=== PATIENT | female | born 1975 | race Caucasian/White ===

== ENCOUNTER 2017-08-31 06:39 | Outpatient (CLI) | payer OTHER ==
[~2017-08-31 06:39] MED LIST: CYCL-1 PO
[2017-08-31 07:45] LABS: BASOPHILS % (AUTO) 0.7 % (0-1); EOSINOPHILS # (AUTO) 0.1 X10'3 (0-0.9); EOSINOPHILS % (AUTO) 1.6 % (0-6); HEMATOCRIT 42.6 % (35.0-45.0); HEMOGLOBIN 14.4 g/dl (12.0-16.0); LYMPHOCYTES # (AUTO) 2.5 X10'3 (1.1-4.8); LYMPHOCYTES % (AUTO) 43.6 % (21-51); MEAN CORPUSCULAR HEMOGLOBIN 27.8 PG (27.0-31.0); MEAN CORPUSCULAR HGB CONC 33.8 % (33.0-36.5); MEAN CORPUSCULAR VOLUME 82.4 FL (78-98); MEAN PLATELET VOLUME 9.8 FL (7.4-10.4); MONOCYTES # (AUTO) 0.4 X10'3 (0-0.9); NEUTROPHILS # (AUTO) 2.7 X10'3 (1.8-7.7); NEUTROPHILS % (AUTO) 47.1 % (42-75); PLATELET COUNT 255 X10'3 (140-440); RED BLOOD COUNT 5.17 X10'6 (4.20-5.60); RED CELL DISTRIBUTION WIDTH 14.9 % (11.5-14.5); WHITE BLOOD COUNT 5.7 X10'3 (4.5-11.0)
[2017-08-31 07:46] LABS: % IRON SATURATION 24 % (11-46); IRON 70 UG/DL (49-151); TOTAL IRON BINDING CAPACITY 292 UG/DL (259-388)
[2017-08-31 08:00] LABS: ALANINE AMINOTRANSFERASE 28 U/L (12-78); ALBUMIN 4.1 G/DL (3.4-5.0); ALBUMIN/GLOBULIN RATIO 1.1 (1.1-1.5); ALKALINE PHOSPHATASE 89 IU/L (46-116); ANION GAP 13 (8-16); ASPARTATE AMINO TRANSFERASE 14 U/L (10-37); BILIRUBIN,TOTAL 0.8 MG/DL (0.1-1.0); BLOOD UREA NITROGEN 19 MG/DL (7-18); BUN/CREATININE RATIO 16.7 (6.6-38.0); CALCIUM 9.1 MG/DL (8.5-10.1); CHLORIDE 103 MMOL/L (99-107); CHOLESTEROL 243 MG/DL (0-200); CREATININE 1.14 MG/DL (0.40-0.90); GLUCOSE 96 MG/DL (70-104); HDL CHOLESTEROL 61 MG/DL (35-60); LDL CHOLESTEROL 164 MG/DL (50-100); POTASSIUM 3.6 MMOL/L (3.5-5.1); SODIUM 138 MMOL/L (135-145); TOTAL CARBON DIOXIDE 21.8 MMOL/L (24-32); TOTAL PROTEIN 7.8 G/DL (6.4-8.2); TRIGLYCERIDES 104 MG/DL (20-135); eGFR 53 ML/MIN
[2017-08-31 08:03] LABS: HEMOGLOBIN A1C 5.4 % (4.5-6.2)
== END 2017-08-31 23:59 | disposition home or self-care (01) ==
LOC: LAB 06:39
PROVIDERS: ATTEND Family Medicine
DX: E66.9 Obesity, unspecified (principal); I10 Essential (primary) hypertension; B02.39 Other herpes zoster eye disease; Z98.84 Bariatric surgery status
CPT/HCPCS: 36415; 80053; 80061; 82607; 83036; 83540; 83550; 85025

== ENCOUNTER 2017-11-03 15:29 | Emergency (ER) | payer OTHER ==
[~2017-11-03] VITALS: Ht 180.3 cm; Wt 82.0 kg
[2017-11-03] MEDS ORDERED: normal saline 1000ML IV soln IVB ONE (15:40)
[2017-11-03] MEDS ORDERED: ondansetron/PF 4mg/2ml inj IV ONE ×3 (15:40→19:05)
[2017-11-03] MEDS: morphine 4 MG/ML inj SYRINge IV PRN ×2 (15:43→16:06)
[2017-11-03 15:53] LABS: BASOPHILS % (AUTO) 0.3 % (0-1); EOSINOPHILS # (AUTO) 0.1 X10'3 (0-0.9); EOSINOPHILS % (AUTO) 1.4 % (0-6); HEMATOCRIT 39.2 % (35.0-45.0); HEMOGLOBIN 13.4 g/dl (12.0-16.0); LYMPHOCYTES # (AUTO) 1.6 X10'3 (1.1-4.8); LYMPHOCYTES % (AUTO) 22.8 % (21-51); MEAN CORPUSCULAR HEMOGLOBIN 28.3 PG (27.0-31.0); MEAN CORPUSCULAR VOLUME 83.1 FL (78-98); MEAN PLATELET VOLUME 9.6 FL (7.4-10.4); MONOCYTES # (AUTO) 0.6 X10'3 (0-0.9); MONOCYTES % (AUTO) 8.9 % (2-12); NEUTROPHILS # (AUTO) 4.7 X10'3 (1.8-7.7); NEUTROPHILS % (AUTO) 66.6 % (42-75); PLATELET COUNT 238 X10'3 (140-440); RED BLOOD COUNT 4.72 X10'6 (4.20-5.60)
[2017-11-03 16:07] LABS: ALANINE AMINOTRANSFERASE 20 U/L (12-78); ALBUMIN 3.8 G/DL (3.4-5.0); ALKALINE PHOSPHATASE 85 IU/L (46-116); ANION GAP 8 (8-16); ASPARTATE AMINO TRANSFERASE 13 U/L (10-37); BILIRUBIN,TOTAL 0.5 MG/DL (0.1-1.0); BLOOD UREA NITROGEN 19 MG/DL (7-18); BUN/CREATININE RATIO 22.4 (6.6-38.0); CALCIUM 9.3 MG/DL (8.5-10.1); CHLORIDE 104 MMOL/L (99-107); CREATININE 0.85 MG/DL (0.40-0.90); GLUCOSE 99 MG/DL (70-104); LIPASE 160 U/L (73-393); POTASSIUM 4.2 MMOL/L (3.5-5.1); SODIUM 139 MMOL/L (135-145); TOTAL CARBON DIOXIDE 26.8 MMOL/L (24-32); TOTAL PROTEIN 7.6 G/DL (6.4-8.2); eGFR 74 ML/MIN
[2017-11-03] MEDS ORDERED: iohexol 300mg/ml 100ml inj. ONE (16:30)
[2017-11-03] MEDS ORDERED: HYDROmorphone 1 mg/ml syringe IV ONE (16:45)
[2017-11-03] MEDS ORDERED: normal saline 1000ml 1,000 ML IV ONE (16:50)
[2017-11-03 17:05] VITALS: BP 123/95
[2017-11-03] MEDS ORDERED: metroNIDAZOLE-Flagyl 500mg/NS 100 ML IV STA (17:12)
[2017-11-03] MEDS ORDERED: ciprofloxacin lact 400MG/200ML 200 ML IV ONE (17:15)
[2017-11-03] MEDS ORDERED: PHE12.5T PO (17:17)
[2017-11-03] MEDS ORDERED: ACET-3067 PO (17:17)
[2017-11-03] MEDS ORDERED: DICY10CA88 PO (17:17)
[2017-11-03] MEDS ORDERED: CIPR-230 PO (17:17)
[2017-11-03] MEDS ORDERED: METR500T4 PO (17:17)
[2017-11-03] MEDS ORDERED: proMETHazine 25mg tablet PO ONE (17:35)
[2017-11-03] MEDS ORDERED: dicyclomine 10 MG capsule PO ONE (17:55)
[2017-11-03 17:56] LABS: CLARITY,URINE CLEAR (Clear); COLOR,URINE STRAW (Yellow); GLUCOSE, URINE NEGATIVE (Neg); KETONES,URINE 15 mg/dl (Neg); LEUKOCYTE ESTERASE ,URINE NEGATIVE (Neg); NITRITES, URINE NEGATIVE (Neg); OCCULT BLOOD,URINE NEGATIVE (Neg); PROTEIN,URINE NEGATIVE (Neg); UROBILINOGEN,URINE 0.2 E.U/dL (0.2-1.0)
[2017-11-03 17:57] LABS: UA COLLECTION TYPE CLN CATCH MIDSTREAM
[2017-11-03] MEDS ORDERED: fentaNYL/PF 50MCG/1 ML 2ML syringe IV ONE (18:10)
[2017-11-03] MEDS ORDERED: ketorolac trometh. 30mg/ml inj. IV ONE (18:10)
[2017-11-03] MEDS ORDERED: ondansetron inj. 24 MG in normal saline 250ml IV soln 228 ML IV ONE (19:00)
== END 2017-11-03 20:14 | disposition home or self-care (01) ==
LOC: ER 15:29
DX: K52.9 Noninfective gastroenteritis and colitis, unspecified (principal); Z90.49 Acquired absence of other specified parts of digestive tract; Z90.710 Acquired absence of both cervix and uterus; Z98.890 Other specified postprocedural states; Z88.2 Allergy status to sulfonamides; Z79.899 Other long term (current) drug therapy
CPT/HCPCS: 36415; 74177; 80053; 81003; 83690; 85025; 96365; 96366; 96367; 96375; 96376; 99285; J0744; J1170; J1885; J2270; J2405; J3010; J3490; J7030; Q0169; Q9967

== ENCOUNTER 2018-01-20 15:22 | Emergency (ER) | payer OTHER ==
[~2018-01-20] VITALS: Ht 180.3 cm; Wt 78.2 kg
[~2018-01-20 15:22] MED LIST changes: +DICY10CA88 PO; +PHE12.5T PO
[2018-01-20] MEDS ORDERED: ketorolac trometh inj. 60 MG/2 ML VIAL IM ONE (15:45)
[2018-01-20] MEDS ORDERED: ketorolac tromethamine 15mg/ml inj. IM ONE (15:45)
[2018-01-20] MEDS ORDERED: BACL20TA PO (16:16)
[2018-01-20] MEDS ORDERED: HYDR-4353 PO (16:24)
[2018-01-20 16:58] VITALS: BP 129/83
== END 2018-01-20 17:00 | disposition home or self-care (01) ==
LOC: ER 15:23
DX: M54.6 Pain in thoracic spine (principal); M54.2 Cervicalgia; M41.9 Scoliosis, unspecified; Z90.49 Acquired absence of other specified parts of digestive tract; Z90.710 Acquired absence of both cervix and uterus; Z98.890 Other specified postprocedural states; Z88.2 Allergy status to sulfonamides; Z79.899 Other long term (current) drug therapy; X50.0XXA Overexertion from strenuous movement or load, initial encounter; Y93.F9 Activity, other caregiving; Y92.89 Other specified places as the place of occurrence of the external cause; Y99.8 Other external cause status
CPT/HCPCS: 72052; 72070; 96372; 99283; J1885

== ENCOUNTER 2020-05-27 05:45 | Day surgery (SDC) | payer BC ==
[2020-05-27] VITALS (12 sets, daily range): BP systolic 110–147; BP diastolic 63–83
[~2020-05-27] VITALS: Ht 180.3 cm; Wt 73.8 kg
[~2020-05-27 05:45] MED LIST changes: +BENA10TA74 PO; -CYCL-1 PO; -DICY10CA88 PO; +DIFL5DRO OP; +DOCUMENT DATE & TIME OF BETA-BLOCKER PO ONE; +METO-384 PO; -PHE12.5T PO; +PREG100C55 PO; +VALA100031 PO; +albuterol 2.5 MG/3 ML nebule NEB ONE; +cefazolin/dext.iso 2gm/100ml 100 ML IV ONE; +famotidine 20mg tablet PO ONE; +ringers solution, lacted 1,000 ML IV SCH; +scopolamine 1.5mg patch.TD72 TD ONE
[2020-05-27] MEDS ORDERED: LIDOcaine 1% 30ml preserv. free vial ONE (06:39)
[2020-05-27] MEDS ORDERED: BUPIVAcaine/PF 2.5 mg/ml (0.25%) 30ml vial ONE (06:40)
[2020-05-27] MEDS ORDERED: scopolamine 1.5mg patch.TD72 TD ONE (07:00)
[2020-05-27 07:02] LABS: BASOPHILS % (AUTO) 0.6 % (0-1); EOSINOPHILS # (AUTO) 0.1 X10'3 (0-0.9); EOSINOPHILS % (AUTO) 2.6 % (0-6); HEMATOCRIT 38.7 % (35.0-45.0); MEAN CORPUSCULAR HEMOGLOBIN 28.8 PG (27.0-31.0); MEAN CORPUSCULAR HGB CONC 33.7 g/dL (33.0-36.5); MEAN CORPUSCULAR VOLUME 85.5 FL (78-98); MEAN PLATELET VOLUME 8.4 FL (7.4-10.4); MONOCYTES # (AUTO) 0.4 X10'3 (0-0.9); MONOCYTES % (AUTO) 8.1 % (2-12); NEUTROPHILS # (AUTO) 2.3 X10'3 (1.8-7.7); NEUTROPHILS % (AUTO) 47.7 % (42-75); PLATELET COUNT 259 X10'3 (140-440); RED BLOOD COUNT 4.53 X10'6 (4.20-5.60); RED CELL DISTRIBUTION WIDTH 12.8 % (11.5-14.5); WHITE BLOOD COUNT 4.9 X10'3 (4.5-11.0)
[2020-05-27] MEDS ORDERED: ondansetron/PF 4mg/2ml inj IV PRN (07:15)
[2020-05-27] MEDS ORDERED: morphine 2 MG/ML inj. syringe IV PRN (07:15)
[2020-05-27] MEDS ORDERED: labetalol 20mg/4ml (5mg/ml) syringe IV PRN (07:15)
[2020-05-27] MEDS ORDERED: fentaNYL/PF 50MCG/1 ML 2ML syringe IV PRN (07:15)
[2020-05-27] MEDS ORDERED: hydrALAZINE 20mg/ml inj. IV PRN (07:15)
[2020-05-27] MEDS ORDERED: ringers solution, lacted 1,000 ML IV SCH (07:15)
[2020-05-27 07:18] LABS: ALANINE AMINOTRANSFERASE 25 U/L (12-78); ALBUMIN 3.7 G/DL (3.4-5.0); ALKALINE PHOSPHATASE 82 IU/L (46-116); ANION GAP 9 (8-16); BILIRUBIN,TOTAL 0.7 MG/DL (0.1-1.0); BLOOD UREA NITROGEN 19 MG/DL (7-18); BUN/CREATININE RATIO 26.8 (6.6-38.0); CALCIUM 9.3 MG/DL (8.5-10.1); CHLORIDE 108 MMOL/L (99-107); CREATININE 0.71 MG/DL (0.40-0.90); GLUCOSE 95 MG/DL (70-104); SODIUM 143 MMOL/L (135-145); TOTAL CARBON DIOXIDE 25.6 MMOL/L (24-32); TOTAL PROTEIN 7.3 G/DL (6.4-8.2); eGFR 89 ML/MIN
[2020-05-27] MEDS ORDERED: midazolam 1 mg/ML 2ml injection ONE ×2 (07:18)
[2020-05-27] MEDS ORDERED: fentaNYL/PF 50MCG/1 ML 2ML syringe ONE (07:18)
[2020-05-27] MEDS ORDERED: dexamethasone sod phosphate 4mg/ml inj. ONE (07:19)
[2020-05-27] MEDS ORDERED: propofol inj 20 ML IV ONE (07:19)
[2020-05-27] MEDS ORDERED: neostigmine methylsulfate 1 MG/ML 10ml vial ONE (07:19)
[2020-05-27] MEDS ORDERED: LIDOcaine 2% (20mg/ml) 5ml vial ONE (07:19)
[2020-05-27] MEDS ORDERED: ondansetron/PF 4mg/2ml inj ONE (07:20)
[2020-05-27] MEDS ORDERED: glycopyrrolate 0.2mg/ml inj ONE (07:20)
[2020-05-27] MEDS ORDERED: rocuronium 10mg/ml inj IV ONE ×2 (07:20→09:07)
[2020-05-27 07:22] LABS: ASPARTATE AMINO TRANSFERASE 22 U/L (10-37); POTASSIUM 4.4 MMOL/L (3.5-5.1)
[2020-05-27] MEDS ORDERED: sevoflurane 250ml liquid IH ONE (07:44)
[2020-05-27] MEDS ORDERED: ePHEDrine 50MG/ML INJ. ONE (08:11)
--- NOTE | 2020-05-27 09:47 | NUR ---
Received from OR via [facility], accompanied by Anesthesiologist DR HONG and report given by Anesthesiologist. PT DROWSY, DENIES PAIN, ABDOMEN W/3 LAP SITES W/BANDAIDS CDI. Addendum: 05/27/20 at 1018 by Linda Gamboa RN Amended: Links added.
[2020-05-27] MEDS: morphine 4 MG/ML inj SYRINge IV PRN ×2 (09:54→10:01)
[2020-05-27] MEDS ORDERED: oxyCODONE/APAP 5-325mg tablet PO PRN ×2 (10:00)
[2020-05-27] MEDS: fentaNYL/PF 50MCG/1 ML 2ML syringe IV PRN ×2 (10:13→10:32)
[2020-05-27] MEDS ORDERED: ketorolac trometh. 30mg/ml inj. IV ONE (10:20)
[2020-05-27] MEDS ORDERED: acetaminophen 1,000mg/100ml IV 100 ML IV ONE (10:20)
--- NOTE | 2020-05-27 11:27 | NUR ---
PT UP AND ABLE TO AMBULATE SAFELY, PT STATES PAIN IMPROVING, NAUSEA RESOLVED, PAIN PILLS GIVEN FOR PAIN AND PTS RIDE HOME. D/C INSTRUCTIONS GIVEN AND GONE OVER W/PT WHO VERBALIZED UNDERSTANDING. PT D/CD TO HOME VIA W/C TO PRIVATE VEHICLE W/O INCIDENT. Addendum: 05/27/20 at 1219 by Linda Gamboa RN Amended: Links added.
== END 2020-05-27 11:27 | disposition home or self-care (01) ==
LOC: PAS 05:45
PROVIDERS: ATTEND Surgery
DX: K43.2 Incisional hernia without obstruction or gangrene (principal); N73.6 Female pelvic peritoneal adhesions (postinfective); K56.699 Other intestinal obstruction unspecified as to partial versus complete obstruction; G89.29 Other chronic pain; I42.9 Cardiomyopathy, unspecified; G47.00 Insomnia, unspecified; B02.29 Other postherpetic nervous system involvement; G43.909 Migraine, unspecified, not intractable, without status migrainosus; Z88.5 Allergy status to narcotic agent; Z88.2 Allergy status to sulfonamides; Z91.013 Allergy to seafood; Z79.899 Other long term (current) drug therapy; Z98.890 Other specified postprocedural states; Z90.710 Acquired absence of both cervix and uterus; Z90.49 Acquired absence of other specified parts of digestive tract; Z98.84 Bariatric surgery status; Z87.891 Personal history of nicotine dependence; Z87.442 Personal history of urinary calculi; Z87.19 Personal history of other diseases of the digestive system
CPT/HCPCS: 36415; 49654; 80053; 85025; 93005; J0131; J1100; J1885; J2001; J2250; J2270; J2405; J2704; J2710; J3010; J3490; J7120; S2900; A4215; A4618